=== PATIENT | female | born 1950 | race Caucasian/White ===

== ENCOUNTER 2021-06-06 10:01 | Outpatient (CLI) | payer OTHER ==
[~2021-06-06 10:01] MED LIST: ALBUTEROL0.63 MG/3; DICLOFENAC POTA50 MG PO; GUAIFENESIN AC C5 ML PO; HYDROCHLOROTH12.5 M1; IOPHEN DM-100 MG/5 M; MEDROLPACK PO; Pulmicort 0.5 MG/2 ML AMPUL IH; SYMBICORT 16010.2 GM; TAMOXIFEN CITRA20 MG PO
== END 2021-06-06 11:22 | disposition home or self-care (01) ==
LOC: SONOGRAMA 10:01
PROVIDERS: ATTEND Pathology Anatomic Pathology & Clinical Pathology
DX: D34 Benign neoplasm of thyroid gland (principal); E04.8 Other specified nontoxic goiter

== ENCOUNTER 2024-05-26 07:27 | Outpatient (CLI) | payer OTHER | END 2024-05-26 07:36 | disposition home or self-care (01) | LOC: MRI 07:27 | PROVIDERS: ATTEND Neurological Surgery | DX: M54.2 Cervicalgia (principal); M48.02 Spinal stenosis, cervical region; M47.12 Other spondylosis with myelopathy, cervical region | CPT/HCPCS: 72141 ==